=== PATIENT | male | born 1965 | race Caucasian/White ===

== ENCOUNTER → 2021-07-26 | Outpatient (CLI) | payer BC | LOC: KOH-I 09:31 | DX: R10.11 Right upper quadrant pain (principal); K76.0 Fatty (change of) liver, not elsewhere classified; K80.80 Other cholelithiasis without obstruction | CPT/HCPCS: 76700 ==

== ENCOUNTER → 2021-09-06 | Outpatient (CLI) | payer BC ==
[~2021-09-06] MED LIST: AMOX TR-K CLV1 EAC4 PO; CLARITIN10 M2 PO; FISH OIL 1,0001 EAC1 PO; GEMFIBROZIL600 MG PO; LISINOPRIL10 MG PO; LO-DOSE ASPIRIN81 MG PO; METFORMIN HCL500 MG PO; TYLENOL EXTRA500 MG PO
[2021-09-06 09:26] LABS: BUN/CREATININE RATIO 19 (0-10)
== END ==
LOC: OPSV2 08:00
PROVIDERS: Surgery
DX: Z01.818 Encounter for other preprocedural examination (principal); I10 Essential (primary) hypertension
CPT/HCPCS: 80048; 93005

== ENCOUNTER → 2021-09-08 | Day surgery (SDC) | payer BC | END | disposition home or self-care (01) | LOC: OR 05:30 | DX: K80.10 Calculus of gallbladder with chronic cholecystitis without obstruction (principal); M12.539 Traumatic arthropathy, unspecified wrist; I10 Essential (primary) hypertension; E11.9 Type 2 diabetes mellitus without complications; Z20.822 Contact with and (suspected) exposure to COVID-19 | CPT/HCPCS: 82962; J0690; J2001; J2250; J2704; J2710; J3010; J7030; J7120 ==

== ENCOUNTER → 2022-01-13 | Outpatient (CLI) | payer BC, OTHER | LOC: MRI 14:26 | DX: R42 Dizziness and giddiness (principal) | CPT/HCPCS: 70553; A9577 ==

== ENCOUNTER → 2022-01-31 | Outpatient (CLI) | payer BC | LOC: KOH-I 10:12 | DX: I65.23 Occlusion and stenosis of bilateral carotid arteries (principal) | CPT/HCPCS: 93880 ==